=== PATIENT | female | born 1985 | race American Indian/Alaskan Native ===

== ENCOUNTER 2016-07-27 18:47 | Emergency (ER) | payer SELFPAY ==
[2016-07-27 19:42] LABS: Hematocrit 37.5 % (30.3-42.9); Hemoglobin 12.2 gm/dl (10.1-14.3); Mean Corpuscular HGB Conc 33 % (30-34); Mean Corpuscular Hemoglobin 26 pg (28-32); Mean Corpuscular Volume 80 fl (79-97); Platelet Count 445 K/mm3 (140-440); Red Blood Count 4.68 M/mm3 (3.65-5.03); White Blood Count 9.9 K/mm3 (4.5-11.0)
[2016-07-27 20:01] LABS: Anion Gap 16 mmol/L; BUN/Creatinine Ratio 11.42; Blood Urea Nitrogen 8 mg/dL (7-17); Calcium 8.8 mg/dL (8.4-10.2); Carbon Dioxide 26 mmol/L (22-30); Chloride 100.4 mmol/L (98-107); Glucose 60 mg/dL (65-100); Potassium 3.8 mmol/L (3.6-5.0); Sodium 139 mmol/L (137-145)
[2016-07-27 20:28] LABS: Blastocytes % (Manual) 0 %
[2016-07-27 20:29] LABS: Basophils % (Manual) 0 % (0.0-1.8)
[2016-07-27 20:30] LABS: Anisocytosis 1+
[2016-07-27 20:31] LABS: Diff Status Complete; Platelet Estimate Consistent w Auto
[2016-07-27] MEDS ORDERED: BENADRYL IV ONE (23:11)
[2016-07-27] MEDS ORDERED: DILAUDID IV ONE (23:11)
--- NOTE | 2016-07-27 23:13 | Emergency Department Report ---
HPI - General Chief Complaint: Chest Pain Time Seen by Provider: 07/27/16 23:06 - [facility] HPI: The patient is a 31-year-old female presents for evaluation of chest pain. The patient reports chest pain for greater than the past 24 hours, 8/10 in severity , burning in quality, increased with movement of the upper body and lying down. The patient denies trauma to the chest wall, dyspnea, syncope, hemoptysis, unilateral leg swelling, oral contraceptive use, recent immobilization, history of DVT or PE, history cancer. ED Past Medical Hx - Past Medical History Previous Medical History?: Yes Additional medical history: Genital Herpes, STD exposure, Vaginal delivery x 2. vertigo - Surgical History Past Surgical History?: Yes Hx Cholecystectomy: Yes Hx Breast Surgery: Yes (BREAST REDUCTION) Additional Surgical History: Right arm - Social History Smoking Status: Never Smoker Substance Use Type: None - Medications Home Medications: Home Medications Medication Instructions Recorded Confirmed Last Taken Type metroNIDAZOLE [Flagyl TAB] 500 mg PO Q8HR #21 tablet 04/07/16 Unknown Rx Omeprazole Magnesium [PriLOSEC Otc] 20 mg PO QDAY #14 tablet. 07/27/16 Unknown Rx traMADol [Ultram 50 MG tab] 50 mg PO Q6HR PRN #15 tablet 07/27/16 Unknown Rx ED Review of Systems ROS: Stated complaint: CHEST PAIN /SOB Other details as noted in HPI Constitutional: denies: fever ENT: denies: throat or neck pain Respiratory: denies: cough, shortness of breath Cardiovascular: reports chest pain Endocrine: denies unexplained weight loss or gain Gastrointestinal: denies: abdominal pain, nausea Genitourinary: denies: dysuria Musculoskeletal: denies: leg swelling Skin: denies: rash Neurological: denies: headache Hematological/Lymphatic: denies: easy bleeding or easy bruising Psych: denies sadness or hopelessness Physical Exam - Physical Exam Vital Signs: Vital Signs 07/27/16 18:59 Temperature 98.9 F Pulse Rate 93 H Respiratory 20 Rate Blood Pressure 113/74 O2 Sat by Pulse 100 Oximetry Physical Exam: General: well-nourished, well-developed, no acute distress Head: Normocephalic, atraumatic Eyes: normal sclera ENT: Mucous membranes are pink and moist Neck: trachea midline, neck supple, No neck stiffness, no cervical adenopathy Respiratory: Breath sounds equal bilaterally, no wheezing, rales, or rhonchi Cardio: S1 and S2 present, no murmurs, rubs, gallops, capillary refill is brisk Abdomen: Normoactive bowel sounds, soft abdomen, no rigidity, no guarding or rebound tenderness Chest WALL/Back: No tenderness to palpation of the chest wall, no CVA tenderness with percussion Musc: No pitting edema Skin: No rash Neuro: no facial drooping, normal speech Psych: Normal affect ED Course Vital Signs 07/27/16 18:59 Temperature 98.9 F Pulse Rate 93 H Respiratory 20 Rate Blood Pressure 113/74 O2 Sat by Pulse 100 Oximetry ED Medical Decision Making - Lab Data Result diagrams: 07/27/16 19:12 07/27/16 19:12 - Medical Decision Making The patient was seen and examined by myself. The patient is placed on a monitoring engineer and continuous pulse ox. On initial evaluation, the patient was found to be in no distress. EKG was negative for findings suggestive of acute cardiac infarct. Labs and imaging are obtained. The patient is given IM dose of morphine for her pain. Chest x-ray is negative for pneumothorax, focal consolidation, pulmonary vascular congestion, pleural effusion, or other obvious acute cardiopulmonary disease process. Lab results were non-concerning including levels of troponin, WBC, hemoglobin, hematocrit, electrolytes, renal function. The patient was reevaluated and reported that their symptoms were markedly improved. As the patient has a MILI risk score less than 2, and a well 's score less than 2, the patient is at low risk of ACS or pulmonary emboli etiology of their symptoms. The patient is stable for discharge with outpatient follow-up. The patient is given follow-up and return instructions. The patient expressed understanding and agreed with the plan. The patient is discharged in stable condition. Critical care attestation.: If time is entered above; I have spent that time in minutes in the direct care of this critically ill patient, excluding procedure time. ED Disposition Clinical Impression: Acute chest pain Disposition: DISCHARGED TO HOME OR SELFCARE Is pt being admited?: No Does the pt Need Aspirin: No Condition: Stable Instructions: Chest Pain (ED), Peptic Ulcer (ED), Gastritis (ED) Prescriptions: Omeprazole Magnesium [PriLOSEC Otc] 20 mg PO QDAY #14 tablet. traMADol [Ultram 50 MG tab] 50 mg PO Q6HR PRN #15 tablet PRN Reason: Pain Referrals: PRIMARY CARE, [Primary Care Provider] - 3-5 Days ALONDRA VÁSQUEZ DO [Staff Physician] - 3-5 Days Forms: Work/School Release Form(ED) Time of Disposition: 23:11
[2016-07-28] MEDS: ZOFRAN ODT PO ONE (00:28)
[2016-07-28] MEDS: MORPHINE IM ONE (00:33)
[2016-07-28 00:41] VITALS: BP 107/65
--- NOTE | 2016-07-28 09:09 | XRay Report ---
PORTABLE CHEST: An AP portable view of the chest demonstrates a normal cardiac contour considering the limits of this technique. The lungs are clear with no evidence of infiltrate, fluid or failure. IMPRESSION: Normal portable chest.
== END 2016-07-28 00:40 | disposition home or self-care (01) ==
LOC: ED 18:47
DX: R07.9 Chest pain, unspecified (principal)
CPT/HCPCS: 36415; 71010; 80048; 84484; 84703; 85007; 85025; 93005; 93010; 96372; 99285; J2270; Q0162

== ENCOUNTER 2016-11-05 04:38 | Emergency (ER) | payer MEDICAID ==
[2016-11-05 06:30] LABS: Bilirubin,Urine NEG (Negative); Blood,Urine SM (Negative); Ketones,Urine 20 mg/dL (Negative); Leukocyte Esterase,Urine NEG (Negative); Mucus,Urine 3+ /HPF; Nitrite,Urine NEG (Negative); Protein,Urine <15 mg/dL mg/dL (Negative); Urobilinogen,Urine < 2.0 mg/dL (<2.0)
--- NOTE | 2016-11-05 08:21 | Ultrasound Report ---
OB sonogram: History: Lower abdominal pain, . Findings: Uterus measures 12.1 x 8.6 x 10.9 cm. Single intrauterine gestation is noted. Biparietal diameter of fetus 2.1 cm corresponding to 13 weeks and 3 days of gestation. Femur length 0.8 cm corresponding to 12 weeks and 3 days of gestation. heart rate of 157 per minute. Small subchorionic bleed measuring 0.9 x 2.1 x 0.4 cm and 0.8 x 1.5 x 1.5 cm. Right ovary 3.8 x 1.3 x 2.7 cm. No mass. Left ovary 4.1 x 1.7 x 3.1 cm. 2.2 cm complex cystic left ovary. Impression: Single viable intrauterine gestation. Subchorionic bleed.
[2016-11-05] MEDS ORDERED: TYLENOL PO ONE (19:31)
[2016-11-05] MEDS ORDERED: TETRACAINE 0.5% OS ONE (19:32)
[2016-11-05] MEDS ORDERED: FUL-GLO OP ONE (19:52)
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
[2016-11-05 23:11] VITALS: BP 94/53
== END 2016-11-06 00:25 | disposition left against medical advice (07) ==
LOC: ED 04:38
DX: O9A.211 Injury, poisoning and certain other consequences of external causes complicating pregnancy, first trimester (principal); S05.12XA Contusion of eyeball and orbital tissues, left eye, initial encounter; Z3A.12 12 weeks gestation of pregnancy; Y04.2XXA Assault by strike against or bumped into by another person, initial encounter; Y93.89 Activity, other specified; Y99.9 Unspecified external cause status; Y92.89 Other specified places as the place of occurrence of the external cause
CPT/HCPCS: 36415; 70480; 76801; 81001; 84702